=== PATIENT | female | born 1980 | race Caucasian/White ===

== ENCOUNTER 2016-10-31 20:31 | Emergency (ER) | payer OTHER ==
--- NOTE | ~2016-10-31 | CR63 ---
[facility]. [facility] A Service of [facility] & [facility] RADIOLOGY TEXT RESULTS PATIENT: CASH BARONE LOCATION: SED : 84 UNIT #: [id number] AGE: [address]: Nando Olmos MD SEX: F ORDER DR: [id number] [address] [address] [id number] MR#: [id number] Acc #: [id number] NAME: CASH BARONE : 1980 SEX: F STUDY DATE/TIME: 10/31/2016 20:14 UNIT: SED ROOM: STUDY DESCRIPTION: CR Chest 2 View Attending Physician: Nando Olmos M.D. Ordering Physician: Nando Olmos M.D. Primary Care Physician: Brandt Rand A.P.R.N. MEDICAL IMAGING REPORT This report is preliminary unless electronic signature is present. EXAM Chest PA and lateral, 10/31/2016 HISTORY Productive cough, chills and head congestion for 1 month. FINDINGS PA and lateral examination of the chest upright shows a good expansion of the parenchyma with a normal distribution of the pulmonary vascularity. There is no indication of congestion, effusion, infiltrate, tumor, or nodular density. The pleural reflections and diaphragmatic contours are normal. The cardiac silhouette and mediastinal anatomy is within normal limits. IMPRESSION Normal chest. Dictated by... German Contreras M.D. THIS IS AN ELECTRONICALLY VERIFIED REPORT German Contreras M.D. at 11/01/2016 4:20 PM KRT/doris TD: 11/01/2016 02:09 JOB #: [id number] MEDICAL IMAGING REPORT
[2016-10-31 20:30] LABS: INFLUENZA A NEG (NEG); INFLUENZA B NEG (NEG)
[~2016-10-31 20:31] MED LIST: AMBIEN; BACTRIM DS TABL1 TA1 PO; BENZONATATE PO; CIPRO PO; GABAPENTIN300 M2; KLONOPIN; MACROBID100 MG PO; NEURONTIN; PHENERGAN25 MG; PHENERGAN25 MG PO; PRENATAL1 TA1 PO; ROBITUSSIN COU118 M8 PO; SUDAFED PO; TRAMADOL HCL50 M1; ZITHROMAX1 G/PKT PO; ZOLOFT
== END 2016-10-31 21:10 | disposition home or self-care (01) ==
LOC: SED 20:31
PROVIDERS: Emergency Medicine
DX: J40 Bronchitis, not specified as acute or chronic (principal); F41.9 Anxiety disorder, unspecified
CPT/HCPCS: 71020; 87651; 87804; 87880; 94640; 99283